=== PATIENT | female | born 1940 | race Caucasian/White ===

== ENCOUNTER → 2017-08-23 | Outpatient (CLI) | payer MEDICARE, BC ==
[~2017-08-23] MED LIST: ACETAMINOPHEN325 M1 PO; ADULT LOW DOSE81 MG PO; ANTIVERT25 MG PO; ASPIR 8181 MG PO; ASPIRIN325 PO; BACTRIM DS TAB1 EACH PO; BAYER CHEWABLE81 MG PO; CALCIUM 600 +1 EAC1 PO; CATAPRES-TTS 10.1 MG TD; CLARITIN10 MG PO; CLONIDINE0.1 PO; ELEMENTAL CALC600 MG PO; FENOFIBRATE134 MG PO; HYDROCODONE-AP1 EAC6 PO; IBUPROFEN 200200 M1 PO; IBUPROFEN 600600 M1 PO; KEFLEX500 MG PO; MINOCYCLINE HC100 MG PO; NORCO 5-325 TA1 EACH PO; OMEPRAZOLE20 M2 PO; OXYBUTYNIN 5 MG5 M2 PO; OXYCODONE HCL 55 MG PO; PERCOCET PO; PREDNISONE 20 M20 MG PO; PRILOSEC 20 MG20 MG PO; RIFAMPIN 300 M300 M1 PO; SINGULAIR 10 MG10 M1 PO; TRAMADOL 50 MG50 MG PO; VITAMIN D1000 UNI1 PO; VITAMIN D3400 UNIT PO; VITAMIN D5000 UNIT PO; VITAMIN E400 UNIT PO; VITAMINC500 PO; VOLTAREN GEL 1100 G2 TOP; XARELTO10 MG PO; XYZAL5 MG PO; ZANAFLEX4 MG PO
== END ==
LOC: M.RAD 09:56
DX: R05 Cough (principal); K21.9 Gastro-esophageal reflux disease without esophagitis; E78.5 Hyperlipidemia, unspecified; Z85.3 Personal history of malignant neoplasm of breast

== ENCOUNTER 2018-01-12 12:02 | Emergency (ER) | payer MEDICARE, BC ==
[~2018-01-12] VITALS: Ht 165.1 cm; Wt 74.8 kg
[~2018-01-12 12:02] MED LIST changes: -ANTIVERT25 MG PO; -TRAMADOL 50 MG50 MG PO; -VITAMIN D3400 UNIT PO; -XYZAL5 MG PO
[2018-01-12] MEDS ORDERED: CLONIDINE0.1 PO (12:17)
[2018-01-12] MEDS ORDERED: VITAMIN D3400 UNIT PO (12:17)
[2018-01-12] MEDS ORDERED: TRAMADOL 50 MG50 MG PO (12:54)
[2018-01-12 13:07] VITALS: BP 140/87
== END 2018-01-12 13:08 | disposition home or self-care (01) ==
LOC: M.ERS 12:02
DX: M25.561 Pain in right knee (principal); I10 Essential (primary) hypertension; Z88.8 Allergy status to other drugs, medicaments and biological substances; Z90.710 Acquired absence of both cervix and uterus

== ENCOUNTER 2018-02-27 10:46 | Emergency (ER) | payer MEDICARE, BC ==
[~2018-02-27] VITALS: Ht 165.1 cm; Wt 74.8 kg
[~2018-02-27 10:46] MED LIST changes: +TRAMADOL 50 MG50 MG PO; +VITAMIN D3400 UNIT PO
[2018-02-27] MEDS ORDERED: XYZAL5 MG PO (10:50)
[2018-02-27 11:52] LABS: ABSOLUTE EOSINOPHILS 0.1 thou/uL (0.0-0.7); ABSOLUTE LYMPHOCYTES 1.1 thou/uL (0.8-5.3); ABSOLUTE MONOCYTES 0.7 thou/uL (0.0-1.2); ABSOLUTE NEUTROPHILS 7.3 thou/uL (1.6-8.1); BASOPHILS 0.5 %; EOSINOPHILS 0.8 %; HEMATOCRIT 38.4 % (37.0-47.0); HEMOGLOBIN 12.7 gm/dL (12.0-15.0); LYMPHOCYTES 12.3 %; MCH 29.8 pg (26.0-34.0); MCHC 33.1 g/dL (28.0-37.0); MONOCYTES 7.7 %; NUCLEATED RBCS 0 /100WBC; PLATELET COUNT* 221 thou/uL (150-400); POLYS 78.7 %; RBC 4.27 mil/uL (4.20-5.00); RDW-CV 13.8 % (10.5-14.5); WBC 9.3 thou/uL (4.0-11.0)
[2018-02-27 11:59] LABS: ANION GAP 5 mmol/L (7-16); BUN 17 mg/dL (7-18); CALCIUM 9.8 mg/dL (8.5-10.1); CHLORIDE 105 mmol/L (98-107); CO2 29 mmol/L (21-32); CREATININE 0.8 mg/dL (0.6-1.3); GLUCOSE 120 mg/dL (70-99); POTASSIUM 4.5 mmol/L (3.5-5.1); SODIUM 139 mmol/L (136-145)
[2018-02-27 12:05] LABS: ALBUMIN 3.3 g/dL (3.4-5.0); ALKALINE PHOSPHATASE 44 U/L (46-116); SGOT 20 U/L (15-37); SGPT 21 U/L (30-65); TOTAL BILIRUBIN 0.4 mg/dL (<0.1-1.0); TOTAL PROTEIN 7.6 g/dL (6.4-8.2); TROPONIN-I LEVEL <0.06 ng/mL (<0.06)
[2018-02-27] MEDS ORDERED: ANTIVERT25 MG PO (12:45)
[2018-02-27 13:07] VITALS: BP 124/46
--- NOTE | 2018-02-27 15:15 | EKG ---
[place] [address] ELECTROCARDIOGRAM REPORT Name: SHAHIDA CHRISTINE Room: [facility]#: [id number] Admission: 02/27/18 Attend Phys: Discharge: 02/27/18 Date of : 44 Report #: [id number] THIS REPORT FOR: //name// [facility] ED Test Date: 2018-02-27 Test Time: 11:57:07 Pat Name: SHAHIDA CHRISTINE Department: Room: Gender: F [employer]p Mixer: JUAN C : 1940 Requested By: Huber Mathews Order Number: [id number] MD: Mannie Hoyos Measurements Intervals [place] Rate: 59 P: -6 MO: 182 QRS: -10 QRSD: 99 T: -4 QT: 430 QTc: 426 Interpretive Statements Sinus rhythm Left ventricular hypertrophy Compared to ECG 08/22/2015 10:08:31 Left ventricular hypertrophy now present Electronically Signed On 02-27-2018 15:14:51 CDT by Mannie Hoyos [email or web address] <ELECTRONICALLY SIGNED> By: Mannie Hoyos MD, [facility] 02/27/18 1514 [id number] Mannie Hoyos MD, [facility] /EPI
== END 2018-02-27 13:07 | disposition home or self-care (01) ==
LOC: M.ERS 10:46
PROVIDERS: Emergency Medicine Emergency Medical Services
DX: R42 Dizziness and giddiness (principal); R11.0 Nausea; I10 Essential (primary) hypertension; Z90.710 Acquired absence of both cervix and uterus; Z85.3 Personal history of malignant neoplasm of breast; Z88.4 Allergy status to anesthetic agent; Z88.8 Allergy status to other drugs, medicaments and biological substances

== ENCOUNTER → 2020-02-18 | Outpatient (CLI) | payer MEDICARE, BC ==
[~2020-02-18] MED LIST changes: +ANTIVERT25 MG PO; +XYZAL5 MG PO
== END ==
LOC: M.RAD 15:19
PROVIDERS: ATTEND Family Medicine
DX: M85.859 Other specified disorders of bone density and structure, unspecified thigh (principal); E34.8 Other specified endocrine disorders; Z78.0 Asymptomatic menopausal state

== ENCOUNTER → 2021-02-07 | Outpatient (CLI) | payer MEDICARE, BC | LOC: M.RAD 15:26 | PROVIDERS: ATTEND Family Medicine | DX: M81.0 Age-related osteoporosis without current pathological fracture (principal); M19.90 Unspecified osteoarthritis, unspecified site; Z78.0 Asymptomatic menopausal state; M25.531 Pain in right wrist; M85.88 Other specified disorders of bone density and structure, other site ==

== ENCOUNTER 2021-04-29 11:11 | Emergency (ER) | payer MEDICARE, BC ==
[~2021-04-29] VITALS: Ht 165.1 cm; Wt 72.6 kg
[2021-04-29 13:42] VITALS: BP 148/72
== END 2021-04-29 13:43 | disposition home or self-care (01) ==
LOC: M.ERS 11:11
DX: S00.12XA Contusion of left eyelid and periocular area, initial encounter (principal); M79.602 Pain in left arm; M25.561 Pain in right knee; I10 Essential (primary) hypertension; Z90.711 Acquired absence of uterus with remaining cervical stump; Z96.641 Presence of right artificial hip joint; Z85.3 Personal history of malignant neoplasm of breast; Z79.899 Other long term (current) drug therapy; Z79.82 Long term (current) use of aspirin; Z88.6 Allergy status to analgesic agent; Z88.8 Allergy status to other drugs, medicaments and biological substances; W19.XXXA Unspecified fall, initial encounter; Y93.01 Activity, walking, marching and hiking; Y92.512 Supermarket, store or market as the place of occurrence of the external cause; Y99.8 Other external cause status

== ENCOUNTER → 2021-08-14 | Outpatient (CLI) | payer MEDICARE, BC | LOC: M.ULTRA 10:30 | PROVIDERS: ATTEND Family Medicine | DX: M79.604 Pain in right leg (principal); R60.0 Localized edema ==

== ENCOUNTER → 2021-08-17 | Outpatient (CLI) | payer MEDICARE, BC | LOC: M.ULTRA 09:50 | PROVIDERS: ATTEND Family Medicine | DX: M79.604 Pain in right leg (principal); M79.89 Other specified soft tissue disorders; M76.60 Achilles tendinitis, unspecified leg ==

== ENCOUNTER → 2021-09-19 | Outpatient (CLI) | payer MEDICARE, BC | LOC: M.ULTRA 11:45 | PROVIDERS: ATTEND Family Medicine | DX: M79.662 Pain in left lower leg (principal); M79.89 Other specified soft tissue disorders ==